=== PATIENT | female | born 1960 | race Caucasian/White ===

== ENCOUNTER 2021-02-17 14:13 | Outpatient (CLI) | payer OTHER, SELFPAY ==
[2021-02-17 15:44] LABS: Hematocrit 44.7 % (37.0-47.0); Hemoglobin 15.5 g/dL (12.0-15.0); Mean Corpuscular HGB Conc 34.7 g/dl (32-36); Mean Corpuscular Hemoglobin 31.6 pg (26-34); Mean Corpuscular Volume 91.2 fl (80-100); Mean Platelet Volume 11.6 fl (7.4-10.4); Platelet Count Result 146 k/mm3 (150-375); Red Cell Distribution Width 12.2 % (11.5-14.5); White Blood Count 7.4 K/mm3 (4.5-10.0)
[2021-02-17 16:32] LABS: Albumin Level 4.4 g/dL (3.5-5.1); Anion Gap 7 mmol/L (8-16); Blood Urea Nitrogen 18 mg/dL (7-17); Carbon Dioxide 27 mmol/L (22-30); Chloride 100 mmol/L (98-107); Estimated Glomerular Filt Rate > 60; Glucose 88 mg/dL (65-110); Sodium 134 mmol/L (137-145)
[2021-02-17 17:23] LABS: Iron 65 ug/dL (37-170)
[2021-02-17 18:52] LABS: Prealbumin 23.6 mg/dL (17.6-36.0)
[2021-02-21 09:26] LABS: Vitamin B1 11 nmol/L (8-30)
== END 2021-02-17 14:14 | disposition home or self-care (01) ==
LOC: ANHLAB 14:20
PROVIDERS: Visit Provider Surgery Plastic and Reconstructive Surgery
DX: Z98.84 Bariatric surgery status (principal)
CPT/HCPCS: 36415; 80048; 82040; 83540; 84134; 84425; 85027

== ENCOUNTER 2021-03-17 15:16 | Observation (INO) | payer OTHER, SELFPAY ==
[2021-03-10 09:33] VITALS: BMI 30.2
[2021-03-16] VITALS (10 sets, daily range): BP systolic 118–141; BP diastolic 67–86; PULSE 69–95; RESP 12–20; TEMP 36.4–36.8; O2SAT 99–100
--- NOTE | 2021-03-16 06:04 | ECG_ITS ---
Measurements Intervals [place] Rate: 62 P: 52 WY: 167 QRS: -5 QRSD: 94 T: 39 QT: 397 QTc: 404 Interpretive Statements SINUS RHYTHM BASELINE ARTIFACT- I, II, III, AVL, AVF NORMAL ECG Electronically Signed On 03-16-2021 8:18:01 CDT by Low Null D.O.
--- NOTE | 2021-03-16 07:01 | WPDHPUPDATE1 ---
History and Physical Update Update Date/Time: 03/16/21 07:01 History and Physical has been reviewed, including an updated exam of the patient. There are NO changes in the patient's condition. Risks, benefits, and alternatives have been discussed and questions answered. Patient agrees to proceed with procedure.
[2021-03-16 07:34] LABS: Urine Cotinine NEGATIVE
[2021-03-16] MEDS: LACTATED RINGERS 1,000 ML 30 ML IV CONT ×3 (07:40→16:55)
--- NOTE | 2021-03-16 07:55 | WPDANESEPPF ---
Anes - Initial Pre Proc Eval Procedure: Operation Date: 03/16/21 08:30 Proposed Procedures p Bilateral Breast Mastopexy - Roland Calderon MD s Abdominoplasty with Jhoana De Lis - Roland Calderon MD s Bilateral Medial Thigh Lift - Roland Calderon MD Date/Time: 03/16/21 07:55 Surgeon: Roland Calderon MD Pre Op Diagnosis: Skin laxity Patient Data Age: 60 Gender: F Height: 1.63 m Weight: 80 kg Allergies Allergy/AdvReac Type Severity Reaction Status Date / Time Iodinated Contrast Media Allergy Mild Hives Verified 03/16/21 07:01 Home Medications Medication Instructions Recorded Confirmed Type multivitamin [Daily Multi-Vitamin] 1 tab-cap PO DAILY 11/03/20 03/16/21 History docusate sodium 100 mg capsule 100 mg PO DAILY #14 cap 02/17/21 03/16/21 Rx ondansetron HCl 4 mg tablet 4 mg PO Q8H #21 tablet 02/17/21 03/16/21 Rx carisoprodol 350 mg tablet 350 mg PO TID PRN #21 tablet 02/19/21 03/16/21 Rx oxycodone-acetaminophen 5 mg-325 1 tablet PO Q6H PRN #15 tablet 02/19/21 03/16/21 Rx mg tablet calcium 500 mg PO TID 03/10/21 03/16/21 History Laboratory Tests 03/16/21 06:50 Cotinine Negative Patient hx anesthesia problems: none Family hx anesthesia problems: none PMFSH Past Medical History Medical History (Updated 03/16/21 @ 07:55 by Que Trevino MD) Family history of blood clots History of deviated nasal septum Hx of sleep apnea Obesity Surgical History Surgical History History of History of cholecystectomy LAP-BAND surgery status Family History Family History Father Hypertension Lung cancer Mother Hypertension Diabetes mellitus Emphysema lung Social History Social History Smoking status: Never smoker Alcohol intake: never Substance use: never Living arrangements: alone Spiritual care concerns: No Anes - Eval Final PreProcedure Day of Procedure 03/16/21 07:55 Patient weight: obese Heart: regular rate and rhythm Lungs: clear to auscultation Airway: Mallampati scale class II Neurological: alert and oriented Last oral intake: >/= 8 hours ASA classification: III Emergent: no Anesthetic plan: proceed Anesthesia type and monitoring: general ETT and standard monitoring Informed Consent: The patient's anesthetic plan and its attendant risks and benefits were discussed with the patient/family/POA. Questions were solicited and answers provided to the satisfaction of the patient/family/POA.
--- NOTE | 2021-03-16 08:03 | W.PM.PROC2 ---
Procedure Note - Detailed Date of Procedure 03/16/21 Pre-op Diagnosis Skin laxity Post-op Diagnosis same Procedure Performed 1. Bilateral mastopexy 2. [id number] abdominoplasty 3. Medial thigh lift Surgeon Roland Calderon MD Anesthesia general Findings Tissue removed from abdomen- 3145 grams Tissue removed thighs: Right - 123 grams + 500cc lipoaspirate Left - 115 grams + 500cc lipoaspirate Description of Procedure Preoperatively the risks, benefits, alternatives were discussed in extensive detail. I want her to be very realistic about the risks involved as well as expectations. Reviewed consent in detail. DVT prophylaxis was discussed extensively. Made sure answered all of her questions to satisfaction. Consent was obtained. She voiced an understanding. She would like proceed. She was marked in the preoperative holding area with her verification. She was taken to the operating room placed supine on the operating room table. Anesthesia provided by anesthesiology and prepped and draped in a standard sterile fashion. Surgical time-out was taken. Breast Stab incision was made and I tumesced with low volume of tumescent solution. I tailor tacked into place and placed in a sitting position. Marked out the nipple-areolar complex at 42 mm based on preoperative markings, measurements, intraoperative observations which were in full agreement. She was then placed supine. I de-epithelialized the superior medial pedicle. Created auto augmentation flap and de-epithelialized this as well. Elevated just what was necessary in order to provide inset auto augmentation flap as well as medial and lateral tissue flaps. Copious irrigated with saline solution and verified strict hemostasis. I sutured auto augmentation flap using 2-0 PDS. I then reapproximated the pillars with 2-0 PDS and sutured along the IMF with a 1 strattaflix. Inset the nipple-areolar complex with 3-0 Monocryl as well as along the vertical. 3-0 strata fix along the IMF. Final closure was running subcuticular 4-0 Monocryl and tissue glue. Thighs Stab incisions were made and used a tumescent solution. Once adequate time for hemostasis using a 5 mm basket cannula I completed suction lipectomy completely de-fat the planned resection area. Once de-fatted a strip avulsion technique was completed in a tack as you go fashion. I closed using 1 Stratafix followed by 3-0 Stratafix, 4-0 Monocryl, and Steri-Strips. Abdomen I placed the patient in a flexed position to verify the upper and lower markings would reach. I then placed supine. A thorough abdominal examination was completed. Stab incisions were made and tumescent solution infiltrated. A liposuction basket cannula was utilized to provide discontinuous undermining. A 10 blade was used to make the upper incision. I continued dissection down to the level of fascia. Elevated just what was necessary for repair of the diastasis. I excised a vertical resection as well in order to complete the [id number] procedure. I then again flexed the bed to verify the upper skin flap would reach the lower markings without tension. Once verified I placed her supine once again and a 10 blade used to make the lower incision. I elevated up to level the umbilicus and left the umbilicus intact on a well-vascularized stalk. The intervening tissue was removed. A 2 mm blunt cannula with 0.5% bupivicaine was injected deep to the fascia bilaterally. I plicated the diastasis recti using 0 PDO stratafix barbed suture. This was in 2 separate layers using 2 separate sutures as well. I repaired around the umbilicus leaving plenty of room for well-vascularized stalk of the umbilicus with 2-0 PDS. I also repaired lateral to the rectus using two layers of 0 PDO stratafix. The patient was flexed and starting from superior to inferior began plication using 2-0 Vicryl to obliterate all space in a standard progressive tension fashion. At the
[2021-03-16] MEDS: ceFAZolin 2 GM/D5W 50 ML 2 GM/50 ML BAG IVPB (08:26)
[2021-03-16] MEDS: TRANEXAMIC ACID 1,000MG/ISO100 1,000 MG/100 ML BAG 200 MG IVPB (08:52)
[2021-03-16] MEDS: ceFAZolin SODIUM 1 GM VIAL 2 GM IV PUSH (12:46)
[2021-03-16] MEDS: LACTATED RINGERS IRRIG 1,000 ML, LIDOCAINE HCL 1% LOCAL INJ 50 ML, EPINEPHrine HCL INJ ... INFILTRATE (14:17)
[2021-03-16] MEDS: TRANEXAMIC ACID 1,000 MG/10 ML AMPUL 1000 MG IV PUSH (16:07)
[2021-03-16] MEDS: ONDANSETRON INJ 4 MG/2 ML VIAL IV PUSH (16:40)
[2021-03-16] MEDS: fentaNYL CITRATE INJ (*CRX) 100 MCG/2 ML VIAL 25 MCG IV PUSH ×3 (17:09→17:46)
--- NOTE | 2021-03-16 18:15 | PC.NURSE ---
This patient, Susana Quintana, was received from PACU on 03/16/21 at 1815. Patient/family oriented to unit policies and routines
[2021-03-16] MEDS: LACTATED RINGERS 1,000 ML 125 ML IV CONT (18:39)
[2021-03-16] MEDS: carisoprodoL (*CRX) 350 MG TABLET PO (18:40)
[2021-03-16] MEDS: ENOXAPARIN 40 MG/0.4 ML SYRINGE SUB-Q (22:25)
[2021-03-16] MEDS: MORPHINE SULFATE (*CRX) 2 MG/ML INJ IV PUSH (22:26)
[2021-03-17] VITALS: BP 115/66; PULSE 87; RESP 16; TEMP 36.6; O2SAT 96
[2021-03-17] MEDS: carisoprodoL (*CRX) 350 MG TABLET PO ×4 (00:01→18:53)
[2021-03-17] MEDS: MORPHINE SULFATE (*CRX) 2 MG/ML INJ IV PUSH (01:52)
[2021-03-17] MEDS: ONDANSETRON INJ 4 MG/2 ML VIAL IV PUSH ×2 (01:55→12:32)
[2021-03-17] MEDS: LACTATED RINGERS 1,000 ML 125 ML IV CONT (01:55)
[2021-03-17] MEDS: oxyCODONE/ACETAMINOPHEN (*CRX) 5-325 MG TABLET PO ×4 (04:12→18:53)
[2021-03-17 04:15] VITALS: BP 130/53; PULSE 103; RESP 16; TEMP 36.8; O2SAT 100
--- NOTE | 2021-03-17 06:56 | WPDPN ---
Progress Note: A&P Assessment and Plan (1) Skin laxity: Code(s): L57.4 - Cutis laxa senilis Status: Acute Assessment and Plan: Will plan for discharge home later today after weaning oxygen, ambulating, tolerating diet, pain controlled. Follow-up in 1 week. Today we had a lengthy discussion about the care. What monitor for. This was a lengthy open-ended catheter station making sure she was well informed. She understands what constitutes a medical emergency. Will wean her oxygen today. She understands the importance of deep breathing and regular activity. I will see her back. Call with any questions or concerns in the meantime. (2) Breast ptosis: Code(s): N64.81 - Ptosis of breast Status: Acute (3) History of bariatric surgery: Code(s): Z98.84 - Bariatric surgery status Status: Acute (4) Hx of sleep apnea: Code(s): Z86.69 - Personal history of other diseases of the nervous system and sense organs Status: Acute (5) Family history of blood clots: Code(s): Z82.49 - Family history of ischemic heart disease and other diseases of the circulatory system Status: Acute Assessment and Plan: Preoperative we he we had a lengthy discussion about her DVT prophylaxis. She is going to continue Lovenox at home. She also understands the importance of ambulation. She understands signs and symptoms to monitor for and when to dial 911/ proceed to the emergency room. (6) LAP-BAND surgery status: Code(s): Z98.84 - Bariatric surgery status Status: Inactive Subjective Date/time seen: 03/17/21 06:30am She states she is doing well. Pain controlled. No nausea vomiting. No fevers or chills. No shortness of breath. No chest pain. No calf tenderness. She did require some oxygen overnight low level. She is completely asymptomatic. Review of Systems Review of Systems: All systems reviewed & are unremarkable except as noted in HPI and below Exam Narrative: Bilateral breasts are healing well. No signs of infection. No hematoma. No seroma. Good color and capillary refill. Abdomen is healing well. No signs of infection. No hematoma. No seroma. Good color and capillary refill. Thighs are healing well. No signs of infection. No hematoma. No seroma. No calf tenderness. Negative Homans. Const: General: comfortable, no acute distress, alert and awake; No acute distress Orientation/consciousness: oriented to person HENMT: Head: normal to inspection Ears: external ears normal General nose exam: Normal external nose present Face and sinus: normal facial exam Eyes: General: appearance normal, both eyes and all related structures Periorbital: periorbital findings normal Eyelids: eyelids normal Conjunctivae: conjunctivae normal Neck: Neck: normal visual inspection Chest: Chest palpation & inspection: normal inspection of the chest Resp: Effort & Inspection: normal respiratory effort and able to speak in complete sentences GI: Inspection: normal to inspection Neuro: General: oriented to person Psych: Appearance: grossly normal Mental Status: mental status grossly normal Objective Data Vital Signs Vital Signs: Vital Signs - 24 hr 03/16/21 16:23 03/16/21 16:35 03/16/21 16:50 Temperature 36.8 C Pulse Rate 94 95 93 Respiratory Rate 14 18 18 Blood Pressure 137/82 141/79 H 137/80 Pulse Oximetry 100 99 100 03/16/21 17:05 03/16/21 17:20 03/16/21 17:35 Temperature Pulse Rate 85 82 83 Respiratory Rate 16 12 14 Blood Pressure 124/72 123/72 134/73 Pulse Oximetry 100 100 100 03/16/21 17:50 03/16/21 18:05 03/16/21 18:15 Temperature 36.7 C Pulse Rate 91 82 79 Respiratory Rate 16 12 16 Blood Pressure 128/75 130/70 118/67 Pulse Oximetry 100 100 100 03/17/21 00:00 03/17/21 04:15 Temperature 36.6 C 36.8 C Pulse Rate 87 103 H Respiratory Rate 16 16 Blood Pressure 115/66 130/53 L Pulse Oximetry 96 100 Int
[2021-03-17 07:00] VITALS: O2SAT 100
--- NOTE | 2021-03-17 07:02 | PM.DS ---
DS: Admitting Diagnosis Discharge Date . Admitting Diagnosis Skin laxity Breast ptosis DS: Discharge Diagnosis Discharge Diagnosis (1) Skin laxity: Code(s): L57.4 - Cutis laxa senilis Status: Acute (2) Breast ptosis: Code(s): N64.81 - Ptosis of breast Status: Acute (3) History of bariatric surgery: Code(s): Z98.84 - Bariatric surgery status Status: Acute (4) Hx of sleep apnea: Code(s): Z86.69 - Personal history of other diseases of the nervous system and sense organs Status: Acute (5) Family history of blood clots: Code(s): Z82.49 - Family history of ischemic heart disease and other diseases of the circulatory system Status: Acute DS: Summary Hospital Course Hospital Course: She underwent mastopexy, [id number] abdominoplasty, medial thigh lift. Postoperatively was kept overnight. His done well. Did require some oxygen overnight we are weaning this. Will plan for discharge home later today once ambulating, pain controlled, tolerating diet, and off oxygen. Exam Narrative: Bilateral breasts are healing well. No signs of infection. No hematoma. No seroma. Good color and capillary refill. Abdomen is healing well. No signs of infection. No hematoma. No seroma. Good color and capillary refill. Thighs are healing well. No signs of infection. No hematoma. No seroma. No calf tenderness. Negative Homans. Const: General: comfortable, no acute distress, alert and awake; No acute distress Orientation/consciousness: oriented to person HENMT: Head: normal to inspection Ears: external ears normal General nose exam: Normal external nose present Face and sinus: normal facial exam Eyes: General: appearance normal, both eyes and all related structures Periorbital: periorbital findings normal Eyelids: eyelids normal Conjunctivae: conjunctivae normal Neck: Neck: normal visual inspection Chest: Chest palpation & inspection: normal inspection of the chest Resp: Effort & Inspection: normal respiratory effort and able to speak in complete sentences GI: Inspection: normal to inspection Neuro: General: oriented to person Psych: Appearance: grossly normal Mental Status: mental status grossly normal DS: Data Data Completed and Pending Labs on day of discharge: Labs from last 24 hours 03/16/21 06:50 Cotinine Negative Discharge Plan Discharge Patient Disposition: Home, Self-Care Discharge Instructions: POST OPERATIVE DISCHARGE INSTRUCTIONS ROLAND CALDERON M.D. [facility] [address] [place] [address] [address] for 24 hours after anesthesia and while you are taking pain medication. Take all prescribed medication as directed Diet as tolerated. No lifting or activity that raises blood pressure for 48 hours. Regular walking / ambulation. No showering until directed to. Once you shower do not take pain medication before showering as the combination of medication and heat may cause you to feel dizzy or pass out. No pools or tubs for 2 weeks. Call with any questions or concerns. No straining or lifting more than 20 pounds for 6 weeks. Slowly stand up straight as tolerated. Dressing Care: May shower. Surgical bra, abdominal binder, and wraps to legs 23 hours per day. If you have any questions or concerns, please call the office . If it is after hours you will be directed to the surgical appliances salesperson exchange. Shortness of breath, chest pain, or other medical emergency dial 911 / proceed to the Emergency Room. Stand Alone Forms: General Discharge Instructions Follow-up/Referrals: Roland Calderon MD [Physician] - 1 Week Discharge Medications: Continued multivitamin 1 tab-cap PO DAILY RF: 0 docusate sodium [Colace] 100 mg capsule 100 mg PO DAILY Qty: 14 RF: 0 ondansetron HCl [Zofran] 4 mg tablet 4 mg PO Q8H Qty: 21 RF
[2021-03-17 08:35] VITALS: BP 123/60; PULSE 99; RESP 18; TEMP 36.8; O2SAT 95
--- NOTE | 2021-03-17 08:40 | WPDANESPN ---
Anes - Prog Note Post-Op Date/Time: 03/17/21 08:40 Cardiovascular status: normal Respiratory status: normal Airway patency: baseline Mental status: baseline Post-Op hydration status: normal Vital Signs: Last Vital Signs Temp 36.8 C 03/17/21 04:15 Pulse 103 H 03/17/21 04:15 Resp 16 03/17/21 04:15 BP 130/53 L 03/17/21 04:15 Pulse Ox 100 03/17/21 07:00 Pain Score (VAS): 3 I/O: Intake & Output 03/16/21 03/17/21 03/17/21 23:59 07:59 15:59 Intake Total 900 1200 Output Total 290 525 Balance 610 675 Post-procedural complaints: none Patient Feedback: Patient satisfied with anesthetic care.
[2021-03-17] MEDS: DOCUSATE SODIUM 100 MG CAPSULE PO ×2 (08:42→21:54)
[2021-03-17 12:15] VITALS: BP 109/50; PULSE 97; RESP 16; TEMP 36.4; O2SAT 95
--- NOTE | 2021-03-17 12:40 | PC.NURSE ---
Dr. Calderon notified that patient just got out of bed for the first time since about 0430 am. She walked to the bathroom and voided, 300cc's. She was very tearful and stated that she would like to stay another day because she is in a lot of pain, she is nauseous and afraid to go home. Dr. Calderon stated that she could stay another night and that she could also have one dose of Toradol for pain. He will be in again in the morning to see the patient
[2021-03-17] MEDS: KETOROLAC 30 MG/ML VIAL (*BKC) IV PUSH (13:13)
[2021-03-17 20:30] VITALS: BP 118/53; PULSE 98; RESP 16; TEMP 36.9; O2SAT 97
[2021-03-17] MEDS: ENOXAPARIN 40 MG/0.4 ML SYRINGE SUB-Q (21:54)
[2021-03-18 00:30] VITALS: BP 130/62; PULSE 113; RESP 16; TEMP 36.9; O2SAT 98
[2021-03-18] MEDS: carisoprodoL (*CRX) 350 MG TABLET PO ×2 (00:31→06:33)
[2021-03-18] MEDS: oxyCODONE/ACETAMINOPHEN (*CRX) 5-325 MG TABLET PO ×2 (00:33→06:32)
[2021-03-18 04:30] VITALS: BP 135/65; PULSE 107; RESP 16; TEMP 36.8; O2SAT 95
[2021-03-18] MEDS: DOCUSATE SODIUM 100 MG CAPSULE PO (06:32)
[2021-03-18 06:48] VITALS: BP 111/50; PULSE 113; RESP 18; TEMP 37.9; O2SAT 99
--- NOTE | 2021-03-18 07:04 | WPDPN ---
Progress Note: A&P Assessment and Plan (1) Skin laxity: Code(s): L57.4 - Cutis laxa senilis Status: Acute Assessment and Plan: Kept again overnight last night for pain control. Will plan for discharge home today. Follow-up in 1 week. Again today we spent extensive time discussing the care. What monitor for. Activity limitations. Made sure answered all of her questions to her satisfaction. We will see her back. Call with any questions or concerns. (2) Breast ptosis: Code(s): N64.81 - Ptosis of breast Status: Acute (3) History of bariatric surgery: Code(s): Z98.84 - Bariatric surgery status Status: Acute (4) Hx of sleep apnea: Code(s): Z86.69 - Personal history of other diseases of the nervous system and sense organs Status: Acute (5) Family history of blood clots: Code(s): Z82.49 - Family history of ischemic heart disease and other diseases of the circulatory system Status: Acute Assessment and Plan: Preoperative we he we had a lengthy discussion about her DVT prophylaxis. She is going to continue Lovenox at home. She also understands the importance of ambulation. She understands signs and symptoms to monitor for and when to dial 911/ proceed to the emergency room. Subjective Date/time seen: 03/18/21 07:04 Yesterday she states she had a little too much discomfort to feel safe heading home. Today she continues to improve. Doing well. She has tolerated some p.o.. No fevers or chills. No nausea vomiting. No shortness of breath. No chest pain. No calf tenderness. She is sitting comfortably in a chair when I saw her today. Review of Systems Review of Systems: All systems reviewed & are unremarkable except as noted in HPI and below Exam Narrative: Bilateral breasts are healing well. No signs of infection. No hematoma. No seroma. Good color and capillary refill. Abdomen is healing well. No signs of infection. No hematoma. No seroma. Good color and capillary refill. Thighs are healing well. No signs of infection. No hematoma. No seroma. No calf tenderness. Negative Homans. Objective Data Vital Signs Vital Signs: Vital Signs - 24 hr 03/17/21 08:35 03/17/21 12:15 03/17/21 20:30 Temperature 36.8 C 36.4 C 36.9 C Pulse Rate 99 97 98 Respiratory Rate 18 16 16 Blood Pressure 123/60 109/50 L 118/53 L Pulse Oximetry 95 95 97 03/18/21 00:30 03/18/21 04:30 03/18/21 06:48 Temperature 36.9 C 36.8 C 37.9 C H Pulse Rate 113 H 107 H 113 H Respiratory Rate 16 16 18 Blood Pressure 130/62 135/65 111/50 L Pulse Oximetry 98 95 99 Intake/Output Intake/Output: Intake & Output 03/15/21 03/16/21 03/17/21 03/18/21 23:59 23:59 23:59 23:59 Intake Total 1550 2200 Output Total 290 825 Balance 1260 1375 Meds/Results Medications: Active Medications Generic Name Dose Route Start Last Admin Trade Name Freq PRN Reason Stop Dose Admin Carisoprodol 350 mg 03/16/21 18:00 03/18/21 06:33 Carisoprodol (*Crx) 350 Mg Tablet PO 350 mg Q6HR MAURISIO Administration Diazepam 5 mg 03/16/21 15:59 Diazepam (*Crx) 5 Mg Tablet PO Q6-8H PRN Anxiety Docusate Sodium 100 mg 03/16/21 21:00 03/18/21 06:32 Docusate Sodium 100 Mg Capsule PO 100 mg Q12HR MAURISIO Administration Enoxaparin Sodium 40 mg 03/16/21 22:00 03/17/21 21:54 Enoxaparin 40 Mg/0.4 Ml Syringe SUB-Q 40 mg DAILY MAURISIO Administration Morphine Sulfate 2 mg 03/16/21 15:59 03/17/21 01:52 Morphine Sulfate (*Crx) 2 Mg/Ml Inj IV PUSH 2 mg Q2H PRN Administration Pain Ondansetron HCl 4 mg 03/16/21 15:59 03/17/21 12:32 Ondansetron Inj 4 Mg/2 Ml Vial IV PUSH 4 mg Q6H PRN Administration Nausea Oxycodone/Acetaminophen 1 - 2 tablet 03/16/21 15:59 03/18/21 06:32 Oxycodone/Acetaminophen (*Crx) 5-325 Mg Tablet PO 1 tablet Q6H PRN Administration Pain
[2021-03-18 08:45] VITALS: TEMP 37.4
== END 2021-03-18 10:41 | disposition home or self-care (01) ==
LOC: ANHSURGERY 18:40 → ANHOB2 18:40
PROVIDERS: Admitting Provider Surgery Plastic and Reconstructive Surgery; Visit Provider Surgery Plastic and Reconstructive Surgery
PROC: (CPT 19316; principal; 2021-03-16 08:30)
PROC: (CPT 19316; 2021-03-16 08:30)
PROC: (CPT 15832; 2021-03-16 08:30)
DX: Z41.1 Encounter for cosmetic surgery (principal); L57.4 Cutis laxa senilis; N64.81 Ptosis of breast; G89.18 Other acute postprocedural pain; Z98.84 Bariatric surgery status; Z79.899 Other long term (current) drug therapy; E66.9 Obesity, unspecified; Z68.31 Body mass index [BMI] 31.0-31.9, adult; Z86.69 Personal history of other diseases of the nervous system and sense organs; Z82.49 Family history of ischemic heart disease and other diseases of the circulatory system
CPT/HCPCS: 19316; 15830; 15847; 15879; 15832; 80307; 93005; 99199; A9270; C9290; G0378; J0171; J0330; J0690; J1100; J1170; J1650; J1885; J2250; J2270; J2405; J2704; J3010; J7120